=== PATIENT | female | born 1990 | race Asian ===

== ENCOUNTER 2017-10-19 18:17 | Emergency (ER) | END 2017-10-19 19:00 | disposition left against medical advice (07) ==

== ENCOUNTER 2018-02-12 12:27 | Outpatient (CLI) | END 2018-02-12 19:59 | disposition home or self-care (01) ==

== ENCOUNTER 2018-04-08 05:45 | Outpatient (CLI) | END 2018-04-08 10:01 | disposition home or self-care (01) ==

== ENCOUNTER 2018-04-08 10:34 | Emergency (ER) | END 2018-04-09 10:09 | disposition home or self-care (01) ==

== ENCOUNTER 2018-04-11 21:13 | Inpatient (IN) | END 2018-04-16 13:05 | disposition home or self-care (01) | DRG 987 ==

== ENCOUNTER 2018-07-05 13:41 | Emergency (ER) | END 2018-07-05 15:22 | disposition home or self-care (01) ==

== ENCOUNTER 2019-03-18 09:39 | Emergency (ER) | payer OTHER ==
[~2019-03-18] VITALS: Ht 165.1 cm; Wt 95.8 kg
[~2019-03-18 09:39] MED LIST: FER325 PO; IBUP-1542 PO; PREN1TAB49 PO; PYRI50TA15 PO
[2019-03-18 09:45] VITALS: Ht 165.1 cm; Wt 95.8 kg
[2019-03-18] MEDS ORDERED: morphine 4 MG/ML VIAL IV STA (11:01)
[2019-03-18] MEDS ORDERED: ONDANSETRON 4 MG INJ IV STA (11:01)
[2019-03-18] MEDS ORDERED: SOD CHLORIDE 0.9% 1,000 ML IV STA (11:01)
[2019-03-18] MEDS ORDERED: SOD CHLORIDE 0.9% 100 ML ONE (12:22)
[2019-03-18] MEDS ORDERED: IOHEXOL 300MG/ML 150 ML BTL ONE (12:22)
--- NOTE | 2019-03-18 12:42 | ERD ---
ER Documentation Chief Complaint Chief Complaint SOB AND EPIGASTRIC PAIN SINCE YESTERDAY; NO DISTRESS, NO N/V/D. HPI 28-year-old female presents with complaint of right upper quadrant pain since yesterday. States she has a history of cholecystectomy. Denies any episodes like this before. In addition she states that she has been having some moderate shortness of breath. Denies any nausea, vomiting, fevers, dysuria, hematuria, chest pain, cough. Denies any treatments. ROS All systems reviewed and are negative except as per history of present illness. Medications Home Meds Active Scripts Hydrocodone/Acetaminophen ([place] 5-325 Tablet) 1 Each Tablet, 1 TAB PO Q6H PRN for PAIN, #15 TAB Prov:YOSSI CHONG 03/18/19 Metronidazole* (Flagyl*) 500 Mg Tablet, 500 MG PO TID for 7 Days, TAB Prov:YOSSI CHONG 03/18/19 Ciprofloxacin Hcl* (Ciprofloxacin Hcl*) 500 Mg Tablet, 500 MG PO BID for 7 Days, TAB Prov:YOSSI CHONG 03/18/19 Ibuprofen* (Motrin*) 600 Mg Tab, 600 MG PO Q6, #15 TAB Prov:RIGO MONTEMAYOR MD 07/05/18 Reported Medications Pyridoxine Hcl (Vitamin B6) 50 Mg Tab, 50 MG PO DAILY, TAB 04/08/18 Ferrous Sulfate* (Ferrous Sulfate*) 325 Mg Tabec, 325 MG PO DAILY, TAB 02/12/18 Vits W-Ca,Fe,Fa(<1MG) () 1 Tab Tablet, 1 TAB PO 05/28/12 Allergies Allergies: Coded Allergies: No Known Allergy (Unverified , 04/11/18) PMhx/Soc Hx Neurological Disorder: No Hx Respiratory Disorders: No Hx Cardiac Disorders: No Hx Psychiatric Problems: No Hx Miscellaneous Medical Probl: No Hx Alcohol Use: No Hx Substance Use: No Hx Tobacco Use: No FmHx Family History: No diabetes, No coronary disease, No other Physical Exam Vitals Vital Signs Date Temp Pulse Resp B/P (MAP) Pulse Ox O2 O2 Flow FiO2 Time Delivery Rate 03/18/19 98.3 89 18 108/67 98 Room Air 14:14 (81) 03/18/19 99.4 100 20 145/79 100 09:45 (101) Physical Exam Const: No acute distress Head: Atraumatic Eyes: Normal Conjunctiva ENT: Normal External Ears, Nose and Mouth. Neck: Full range of motion. No meningismus. Resp: Clear to auscultation bilaterally Cardio: Regular rate and rhythm, no murmurs Abd: Tenderness to palpation in the right upper quadrant. Nondistended. Abdomen is soft. Normal bowel sounds Skin: No petechiae or rashes Back: No midline or flank tenderness Ext: No cyanosis, or edema Neur: Awake and alert Psych: Normal Mood and Affect Result Diagram: 03/18/19 1125 03/18/19 1125 Results 24 hrs Laboratory Tests Test 03/18/19 11:25 03/18/19 11:26 White Blood Count 6.5 10^3/ul Red Blood Count 4.88 10^6/ul Hemoglobin 13.2 g/dl Hematocrit 41.1 % Mean Corpuscular Volume 84.2 fl Mean Corpuscular Hemoglobin 27.0 pg Mean Corpuscular Hemoglobin Concent 32.1 g/dl Red Cell Distribution Width 13.6 % Platelet Count 263 10^3/UL Mean Platelet Volume 10.1 fl Immature Granulocytes % 0.200 % Neutrophils % 58.2 % Lymphocytes % 30.1 % Monocytes % 8.4 % Eosinophils % 2.8 % Basophils % 0.3 % Nucleated Red Blood Cells % 0.0 /100WBC Immature Granulocytes # 0.010 10^3/ul Neutrophils # 3.8 10^3/ul Lymphocytes # 2.0 10^3/ul Monocytes # 0.6 10^3/ul Eosinophils # 0.2 10^3/ul Basophils # 0.0 10^3/ul Nucleated Red Blood Cells # 0.0 10^3/ul Urine Color YELLOW Urine Clarity CLOUDY Urine pH 5.0 Urine Specific [place] 1.023 Urine Ketones NEGATIVE mg/dL Urine Nitrite NEGATIVE mg/dL Urine Bilirubin NEGATIVE mg/dL Urine Urobilinogen NEGATIVE mg/dL Urine Leukocyte Esterase TRACE Sancho/ul Urine Microscopic RBC 1 /HPF Urine Microscopic WBC 3 /HPF Urine Squamous Epithelial Cells MANY /HPF Urine Renal Epithelial Cells FEW /HPF Urine Bacteria FEW /HPF Urine Mucus MODERATE /HPF Urine Hemoglobin NEGATIVE mg/dL Urine Glucose NEGATIVE mg/dL Urine Total Protein NEGATIVE mg/dl Sodium Level 143 mmol/L Potassium Level 3.8 mmol/L Chloride Level 107 mmol/L Carbon Dioxide Level 26 mmol/L Anion Gap 10 Blood Urea Nitrogen 8 mg/dl Creatinine 0.67 mg/dl Est Glomerular Filtrat Rate mL/min > 60 mL/min Glucose Level 94 mg/dl Calcium Level 9.0 mg/dl Total Bilirubin 0.4 mg/dl Direct Bilirubin 0.00 mg/dl Indirect Bilirubin 0.4 mg/dl Aspartate Amino Transf (AST/SGOT) 27 IU/L Alanine Aminotransferase (ALT/SGPT) 41 IU/L Alkaline Phosphatase 119 IU/L Troponin I < 0.012 ng/ml Total Protein 7.5 g/dl Albumin 4.2 g/dl Globulin 3.30 g/dl Albumin/Globulin Ratio 1.27 Lipase 95 U/L POC Beta HCG, Qualitative NEGATIVE Current Medications Medications Dose Sig/Patience Start Time Status Last (Trade) Ordered Route PRN Stop Time Admin Dose Reason Admin Sodium 1,000 ml @ Q1H STAT 03/18/19 DC 03/18/19 Chloride 1,000 mls/hr IV 11:01 11:28 03/18/19 12:00 Morphine 4 mg ONCE STAT 03/18/19 DC 03/18/19 Sulfate IV 11:01 11:28 (morphine) 03/18/19 11:03 Ondansetron 4 mg ONCE STAT 03/18/19 DC 03/18/19 HCl (Zofran IV 11:01 11:28 Inj) 03/18/19 11:03 IV Flush 10 ml STK-MED 03/18/19 DC 03/18/19 (NS 10 ml) ONCE .ROUTE 12:22 12:32 03/18/19 12:23 Sodium 100 ml @ ud STK-MED 03/18/19 DC 03/18/19 Chloride ONCE .ROUTE 12:22 12:32 03/18/19 12:23 Iohexol 150 ml STK-MED 03/18/19 DC 03/18/19 (Omnipaque ONCE .ROUTE 12:22 12:33 300mg/ ml) 03/18/19 12:23 Morphine 2 mg ONCE STAT 03/18/19 DC 03/18/19 Sulfate IV 13:53 14:02 (morphine) 03/18/19 13:54 Procedures/MDM DIAGNOSTIC IMAGING REPORT Patient: KARMEN CUELLO : 1990 Age: 28 Sex: F MR #: [id number] DOS: 03/18/19 1101 Ordering MD: YOSSI CHONG Location: [facility] Room/Bed: PROCEDURE: CT abdomen and pelvis with contrast. CLINICAL INDICATION: abdominal pain TECHNIQUE: CT scan of the abdomen and pelvis with contrast was performed on a multi-slice CT scanner . The patient was scanned after administration of 100 cc of Omnipaque-300 intravenous contrast. The Sagittal and coronal reformatted images were obtained from the axial source images. One or more of the following dose reduction techniques were used: - Automated exposure control. - Adjustment of the mA and/or kV according to patient size. - Use of iterative reconstruction technique. DICOM images are available DLP 1381.3 mGycm. CTDIvol 22.55 mGy COMPARISON: None. FINDINGS: Lower thorax: Mild peribronchial ground-glass micronodular opacities seen with trace ground-glass and a focus of atelectasis in the right lower lobe.. Delete the Liver: There is uniform enhancement of the liver with no focal lesion. The portal vein is intact without thrombus. Biliary: The gallbladder is removed. No biliary dilatation. Pancreas: Homogeneous density and enhancement of the pancreas without visible focal lesion or cystic abnormality. There is no pancreatic ductal dilatation. Spleen: Unremarkable without enlargement or focal lesion. Adrenal Glands: The adrenal glands are within normal limits without mass. Urinary: The kidneys are symmetric in size bilaterally with symmetric enhancement. There are no visible renal or ureteral stones. There is no hydron ephrosis. Gastrointestinal: Mild wall thickening is seen involving the colon most pronounced involving the ascending and transverse colon without obstruction or appendicitis. Lymph nodes: There are no enlarged lymph nodes. Vascular: The aorta is unremarkable. Peritoneum/mesentery: Trace intraperitoneal free fluid is seen with no free air. Reproductive organs: The uterus and adnexal structures are grossly within normal limits. Musculoskeletal: There is no acute osseous abnormality Other: None IMPRESSION: Findings suggestive for colitis which may be infectious or inflammatory without obstruction or appendicitis. Right lower lobe opacity could represent an area of bronchiolitis or atypical infection with peribronchial tree in bud ground-glass nodules. RPTAT: AA .Yan Diaz MD, MD Date Time Electronically viewed and signed by .Yan Diaz MD, MD on 03/18/2019 12:57 .J/ CC: YOSSI CHONG [phone] MDM: Patient was given IV fluids as well as pain medication in the ER. Patient's labs were totally within normal limits. Chest x-ray was taken results within normal limits, however CT showed lower lobe infiltrate. Given patient's complaint of acute pain with history of cholecystectomy, CT contrast of abdomen pelvis was ordered. Results were positive for colitis as well as lobar lobe infiltrate. I discussed case with supervising physician Dr. Breaux he stated patient would be fit for discharge with course of Cipro and Flagyl which would cover both the colitis as well as possible pneumonia. He stated no further imaging or inpatient meds needed as this time. I discussed with patient the dis charge plan and she agreed and stated she felt comfortable being discharged with antibiotics as well as pain medication. I have low suspicion for acute coronary syndrome, AAA, mesenteric ischemia, lower lobe pneumonia, DKA, bowel perforation, cholecystitis, choledocholithiasis, ascending cholangitis, hepatic abscess, pancreatitis, PUD, splenic rupture, diverticulitis, pyelonephritis, nephrolithiasis, appendicitis, , ectopic , PID, ovarian torsion or tubo-ovarian abscess. At this time, patient is stable for discharge and outpatient management. I have instructed the patient to follow-up with his/her primary care physician in 1-2 days. I have discussed with the patient the possibility of needing to see a specialist for further workup and imaging studies if symptoms persist. I have instructed the patient to promptly return to the ER for any new or worsening symptoms including but not limited to increased pain, fever, nausea, vomiting, weakness or LOC. The patient and/or family expressed understanding of and agreement with this plan. All questions were answered. Home care instructions were provided. DISCLAIMER: Inadvertent spelling and grammatical errors are likely due to EHR/dictation software use and do not reflect on the overall quality of patient care. Also, please note that the electronic time recorded on this note does not necessarily reflect the actual time of the patient encounter. Departure Diagnosis: Primary Impression: Colitis Additional Impression: Pneumonia Pneumonia type: due to unspecified organism Laterality: unspecified laterality Lung location: lower lobe of lung Qualified Codes: J18.1 - Lobar pneumonia, unspecified organism Condition: Stable YOSSI CHONG Mar 18, 2019 12:42
[2019-03-18] MEDS ORDERED: HYDR-4011 PO (13:46)
[2019-03-18] MEDS ORDERED: METR500T PO (13:46)
[2019-03-18] MEDS ORDERED: CIPR500T4 PO (13:46)
[2019-03-18] MEDS ORDERED: morphine 2 MG INJ IV STA (13:53)
[2019-03-18 14:14] VITALS: BP 108/67; PULSE 89; RESP 18
== END 2019-03-18 14:16 | disposition home or self-care (01) ==
LOC: FTE 09:39
DX: K52.9 Noninfective gastroenteritis and colitis, unspecified (principal); J18.1 Lobar pneumonia, unspecified organism
CPT/HCPCS: 36415; 71045; 74177; 80053; 81001; 81025; 83690; 84484; 85025; 96361; 96374; 96375; 96376; J2270; J2405; J7030; Q9967; Z7502; Z7610